=== PATIENT | male | born 1950 | race Caucasian/White ===

== ENCOUNTER 2017-08-25 19:45 | Emergency (ER) | payer MEDICARE ==
[~2017-08-25] VITALS: Ht 182.9 cm; Wt 99.8 kg
[~2017-08-25 19:45] MED LIST: AMLO5 PO; ASPI81CH PO; BP MED; EZET10 PO; HYDR1TAB94 PO; LEVFLO500 PO; LISHYD2025 PO; LISI20 PO; Micro-K10 MEQ PO; OMEP10ER PO; OMEP20ER; OMEP20ER PO; VITAMIN D-32000 UNI1 PO; [UNRECOGNIZED DRUG - OTHER] PO
[2017-08-25 20:10] LABS: BASOPHILS ABSOLUTE AUTO 0.02 K/mm3 (0.00-0.23); BASOPHILS PERCENT AUTO 0 % (0-2); EOSINOPHILS ABSOLUTE AUTO 0.09 K/mm3 (0.00-0.68); EOSINOPHILS PERCENT AUTO 1 % (0-6); Hematocrit 39.8 % (37.0-53.0); Hemoglobin 13.5 g/dL (13.5-17.5); IMMATURE GRAN ABSOLUTE AUTO 0.04 K/mm3 (0.00-0.10); IMMATURE GRAN PERCENT AUTO 0 % (0-1); LYMPHOCYTES PERCENT AUTO 44 % (21-46); MONOCYTES ABSOLUTE AUTO 0.87 K/mm3 (0.16-1.47); MONOCYTES PERCENT AUTO 7 % (4-13); Mean Corpuscular HGB 32.5 pg (26.0-34.0); Mean Corpuscular HGB Conc 33.9 g/dL (31.5-36.5); Mean Corpuscular Volume 96 fL (80-100); Mean Platelet Volume 9.1 fL (9.1-12.4); NEUTROPHILS ABSOLUTE AUTO 5.66 K/mm3 (1.96-9.15); NEUTROPHILS PERCENT AUTO 48 % (41-73); Platelet Count 220 K/mm3 (150-400); RDW Coefficient Variation 13.9 % (11.7-14.2); RDW Standard Deviation 49.1 fL (35.1-46.3); Red Blood Cell Count 4.15 M/mm3 (4.30-5.90); White Blood Cell Count 11.88 K/mm3 (4.00-11.30)
[2017-08-25 20:28] LABS: Alanine Aminotransfer (ALT/SGP 38 U/L (12-78); Albumin, Blood 3.2 g/dL (3.4-5.0); Albumin/Globulin Ratio 0.9 (0.8-1.8); Alk Phos 77 U/L (50-136); Anion Gap 11 mmol/L (6-16); Aspartate Aminotrans (AST/SGOT 28 U/L (12-37); Bilirubin, Total 0.3 mg/dL (0.1-1.0); Blood Urea Nitrogen 24 mg/dL (8-24); Bun/Creatinine Ratio 21.6 (12.0-20.0); CO2, Blood 21 mmol/L (21-32); Calcium, Blood 8.5 mg/dL (8.5-10.1); Chloride, Blood 106 mmol/L (98-108); Creatinine, Blood 1.11 mg/dL (0.60-1.20); Globulin, Blood 3.4 g/dL (2.2-4.0); Glomerular Filtration Rate >60 (60-); Glucose, Blood 149 mg/dL (70-99); Sodium, Blood 138 mmol/L (136-145); Total Protein, Blood 6.6 g/dL (6.4-8.2)
== END 2017-08-25 21:58 | disposition home or self-care (01) ==
LOC: ER 19:45
PROVIDERS: Emergency Medicine
DX: R55 Syncope and collapse (principal); I95.2 Hypotension due to drugs; T39.315A Adverse effect of propionic acid derivatives, initial encounter; Z88.6 Allergy status to analgesic agent; Z88.8 Allergy status to other drugs, medicaments and biological substances; Z79.899 Other long term (current) drug therapy; Z79.82 Long term (current) use of aspirin; I10 Essential (primary) hypertension; E78.00 Pure hypercholesterolemia, unspecified; K21.9 Gastro-esophageal reflux disease without esophagitis
CPT/HCPCS: 36415; 71046; 80053; 83880; 85025; 93005; 93010; 96361; 96374; 99284; J1200; J7030

== ENCOUNTER 2017-09-21 17:35 | Emergency (ER) | payer MEDICARE ==
[~2017-09-21] VITALS: Ht 182.9 cm; Wt 113.4 kg
== END 2017-09-21 18:29 | disposition home or self-care (01) ==
LOC: ER 17:35
DX: S90.31XA Contusion of right foot, initial encounter (principal); I10 Essential (primary) hypertension; E78.00 Pure hypercholesterolemia, unspecified; K21.9 Gastro-esophageal reflux disease without esophagitis; Z88.6 Allergy status to analgesic agent; Z79.899 Other long term (current) drug therapy; Z79.82 Long term (current) use of aspirin; Z87.891 Personal history of nicotine dependence; W22.8XXA Striking against or struck by other objects, initial encounter
CPT/HCPCS: 73630; 99283

== ENCOUNTER → 2017-12-31 | Outpatient (CLI) | payer MEDICARE | END | disposition home or self-care (01) | LOC: LAB SHORT 10:03 → PLD 10:03 | DX: D48.5 Neoplasm of uncertain behavior of skin (principal) | CPT/HCPCS: 88305 ==

== ENCOUNTER → 2019-01-06 | Outpatient (CLI) | payer OTHER | END | disposition home or self-care (01) | LOC: LAB SHORT 08:11 → PLD 08:11 | DX: C44.329 Squamous cell carcinoma of skin of other parts of face (principal) | CPT/HCPCS: 88305 ==

== ENCOUNTER → 2019-01-19 | Outpatient (CLI) | payer OTHER | END | disposition home or self-care (01) | LOC: LAB SHORT 16:34 → PLD 16:34 | DX: L57.8 Other skin changes due to chronic exposure to nonionizing radiation (principal) | CPT/HCPCS: 88305 ==

== ENCOUNTER 2020-05-29 10:49 | Observation (INO) | payer OTHER ==
[~2020-05-29] VITALS: Ht 182.9 cm; Wt 104.3 kg
[~2020-05-29 10:49] MED LIST changes: -AMLO5 PO; -LISHYD2025 PO
[2020-05-29] MEDS ORDERED: OMEP20ER PO (11:07)
[2020-05-29] MEDS ORDERED: Vitamin D2000 UNIT PO (11:08)
[2020-05-29] MEDS ORDERED: AMLO5 PO (11:08)
[2020-05-29] MEDS ORDERED: LISINOPRIL-HCT1 EACH PO (11:08)
[2020-05-29] MEDS ORDERED: POTA10T PO (11:08)
[2020-05-29] MEDS ORDERED: Norco 5-325 Ta1 EACH PO (11:09)
[2020-05-29] MEDS ORDERED: TIZA4 PO (11:10)
[2020-05-29 11:23] LABS: BASOPHILS ABSOLUTE AUTO 0.04 K/mm3 (0.00-0.23); BASOPHILS PERCENT AUTO 1 % (0-2); EOSINOPHILS ABSOLUTE AUTO 0.13 K/mm3 (0.00-0.68); EOSINOPHILS PERCENT AUTO 2 % (0-6); Hematocrit 37.9 % (37.0-53.0); Hemoglobin 12.9 g/dL (13.5-17.5); IMMATURE GRAN ABSOLUTE AUTO 0.02 K/mm3 (0.00-0.10); IMMATURE GRAN PERCENT AUTO 0 % (0-1); LYMPHOCYTES ABSOLUTE AUTO 2.11 K/mm3 (0.84-5.20); LYMPHOCYTES PERCENT AUTO 32 % (21-46); MONOCYTES ABSOLUTE AUTO 0.47 K/mm3 (0.16-1.47); MONOCYTES PERCENT AUTO 7 % (4-13); Mean Corpuscular HGB 32.6 pg (26.0-34.0); Mean Corpuscular Volume 96 fL (80-100); NEUTROPHILS ABSOLUTE AUTO 3.84 K/mm3 (1.96-9.15); NEUTROPHILS PERCENT AUTO 58 % (41-73); Platelet Count 188 K/mm3 (150-400); RDW Coefficient Variation 13.1 % (11.7-14.2); RDW Standard Deviation 45.9 fL (35.1-46.3); Red Blood Cell Count 3.96 M/mm3 (4.30-5.90); White Blood Cell Count 6.61 K/mm3 (4.00-11.30)
[2020-05-29 11:42] LABS: Alanine Aminotransfer (ALT/SGP 27 U/L (12-78); Albumin, Blood 3.3 g/dL (3.4-5.0); Alk Phos 74 U/L (50-136); Anion Gap 8 mmol/L (6-16); Aspartate Aminotrans (AST/SGOT 22 U/L (12-37); Bilirubin, Total 0.3 mg/dL (0.1-1.0); Blood Urea Nitrogen 12 mg/dL (8-24); Bun/Creatinine Ratio 15.3 (12.0-20.0); CO2, Blood 24 mmol/L (21-32); Calcium, Blood 8.8 mg/dL (8.5-10.1); Chloride, Blood 110 mmol/L (98-108); Creatinine, Blood 0.78 mg/dL (0.60-1.20); Globulin, Blood 3.4 g/dL (2.2-4.0); Glomerular Filtration Rate >60 (60-); Glucose, Blood 112 mg/dL (70-99); Potassium, Blood 3.6 mmol/L (3.5-5.5); Sodium, Blood 142 mmol/L (136-145); Total Protein, Blood 6.7 g/dL (6.4-8.2); Troponin I <0.015 ng/mL (0.000-0.040)
[2020-05-29] MEDS ORDERED: PRESERVISION A1 EACH PO (13:17)
[2020-05-29] MEDS ORDERED: ACET500 PO (13:18)
[2020-05-29 13:35] LABS: CHOL/HDL RATIO 5.4; Cholesterol 182 mg/dL (50-200); HDL Cholesterol 34 mg/dL (>39); LDL/HDL RATIO 2.5; Low Density Lipoprotein Chol 84 mg/dL (0-110); Triglycerides 321 mg/dL (30-160); Very Low Density Lipoprot Chol 64 mg/dL (6-32)
--- NOTE | 2020-05-29 18:10 | NUR ---
PT PLEASANT COOP A/O X3 TALKATIVE. STATES WAS TO OVERSEE A CONCRETE PAD PLACEMENT FOR [employer] TOMORROW. STAYS QUITE ACTIVE. DENIES PAIN. PRESENTS SOME WEAKER ON RT SIDE. ARM AND LEG. ABLE TO AMBULATE SBA. DID WELL. FINE MOTOR SKILLS POOR IN HAND JOSSELYN. H/R REG, NO MURMER NOTED. NSR PER TELE. LUNGS CLEAR, RESP EASY, UNLABORED. ON R.A. BT X4 LAST BM YEST. VOIDS URINAL. SBA TO BATHROOM. ASKED PT TO USE CALL LITE WE ARE UNSURE OF IF MAY MAKE SUDDEN CHANGE. HE AGREEABLE. BED IN LOW POSITION, CALL LITE IN REACH, CALLS APPROP. USING CELL PHONE TO TALK WITH FAMILY AT THIS TIME.
--- NOTE | 2020-05-30 04:21 | NUR ---
PCU FOOD SERVICES COORDINATOR (SEPTEMBER) CALLED TO ALERT STAFF THAT PT'S HR IS NOW SUSTAINING 50'S AND DROPPING TO LOW 40'S. HR PREVIOUSLY AVERAGED 60'S-70S. HE WAS ASYMPTOMATIC OF ANY CARDIAC DISTRESS AND WAS SLEEPING BUT SUSTAINED 50'S UPON AWAKING. ALERTED AND ATENOLOL DC'D AT THIS TIME.
--- NOTE | 2020-05-30 04:39 | NUR ---
SUMMARY: A/OX4, CALLS APPROPRIATELY AND SPECIFIES NEEDS. NEURO OBS STABLE. HIS R.SIDE IS ONLY SLIGHTLY WEAK BUT PT REPORTS IT'S "MUCH BETTER NOW" AND IS HARDLY NOTICEABLE TO STAFF. HE ADMITS HIS FINE MOTOR SKILLS TO HIS R.HAND ARE IMPAIRED MAKING THING LIKE "TEXTING DIFFICULT" BUT NO OTHER DEFICITS OBSERVED. TEDS INTACT BUT GIVEN BREAK FROM THEM AT HS. HE USES URINAL AT BEDSIDE W/O DIFFICULTY. HE REMAINS ON TELEMETRY W/HR AVERAGING 60'S-70'S BPM BUT PT DID BECOME BRADYCARDIC DOWN TO HIGH 40'S-50'S. HE WAS ASYMPTOMATIC BUT DC'D ATENOLOL. PT SLEPT INTERMITTENTLY T/O NOCTE AND DENIED PAIN/ COMPLAINTS. NO ACUTE CHANGES, VSS/AFEBRILE. WTCM AND REPORT TO DAY RN.
[2020-05-30 05:34] LABS: BASOPHILS ABSOLUTE AUTO 0.04 K/mm3 (0.00-0.23); BASOPHILS PERCENT AUTO 1 % (0-2); EOSINOPHILS ABSOLUTE AUTO 0.16 K/mm3 (0.00-0.68); EOSINOPHILS PERCENT AUTO 2 % (0-6); Hematocrit 36.2 % (37.0-53.0); Hemoglobin 12.3 g/dL (13.5-17.5); IMMATURE GRAN ABSOLUTE AUTO 0.02 K/mm3 (0.00-0.10); IMMATURE GRAN PERCENT AUTO 0 % (0-1); LYMPHOCYTES ABSOLUTE AUTO 3.26 K/mm3 (0.84-5.20); LYMPHOCYTES PERCENT AUTO 44 % (21-46); MONOCYTES ABSOLUTE AUTO 0.49 K/mm3 (0.16-1.47); MONOCYTES PERCENT AUTO 7 % (4-13); Mean Corpuscular HGB 32.5 pg (26.0-34.0); Mean Corpuscular Volume 96 fL (80-100); Mean Platelet Volume 9.5 fL (9.1-12.4); NEUTROPHILS ABSOLUTE AUTO 3.48 K/mm3 (1.96-9.15); NEUTROPHILS PERCENT AUTO 47 % (41-73); Platelet Count 180 K/mm3 (150-400); RDW Coefficient Variation 13.1 % (11.7-14.2); Red Blood Cell Count 3.79 M/mm3 (4.30-5.90); White Blood Cell Count 7.45 K/mm3 (4.00-11.30)
[2020-05-30 06:10] LABS: Anion Gap 8 mmol/L (6-16); Blood Urea Nitrogen 14 mg/dL (8-24); CO2, Blood 25 mmol/L (21-32); Calcium, Blood 8.9 mg/dL (8.5-10.1); Chloride, Blood 107 mmol/L (98-108); Glomerular Filtration Rate >60 (60-); Glucose, Blood 98 mg/dL (70-99); Magnesium, Blood 1.7 mg/dL (1.6-2.4); Potassium, Blood 3.5 mmol/L (3.5-5.5); Sodium, Blood 140 mmol/L (136-145)
[2020-05-30] MEDS ORDERED: ATOR80 PO (08:52)
[2020-05-30] MEDS ORDERED: ASPI325 PO (08:52)
--- NOTE | 2020-05-30 13:13 | NUR ---
Upon receiving an admit referral for spiritual care, I visit the patient. Patient is lying in bed and in street clothes. Patient's spouse Tracy is bedside. Patient explains about his medical issues and about his desire to connect with a Package Sorter for prayer. Patient talks about his laura, his career and his family. I listen empathically and provide prayer. Patient responds well and shows signs an elevated mood. I will continue to remain available to patient and family.
--- NOTE | 2020-05-30 14:05 | NUR ---
SHIFT SUMMARY CORBIN LEFT WITH HIS VIA WC. MEDS FAXED TO PHARMACY, ATTEMPTED TO MAKE PCP F/U FOR PT, BUT UNABLE TO REACH DOCTOR'S OFFICE, PT AWARE AND HE WILL CALL AT HOME TO GET APPT. PIV REMOVED, PAPERWORK GONE OVER WITH PT AND [facility]. THEY HAD A LOT OF CONCERNS ABOUT TAKING ASPIRIN PUBLIC SPEAKING PROFESSOR, DR DENNIS TO THE BEDSIDE, DR DENNIS CANCELED ASPIRIN PRESCRIP[TION.
== END 2020-05-30 13:28 | disposition home or self-care (01) ==
LOC: ER 10:49 → MEDS 10:50 → ENPENDDIS 05-30 11:02 → MEDS 05-30 13:28
PROVIDERS: Emergency Medicine; ADMIT Family Medicine
DX: R53.1 Weakness (principal); R09.89 Other specified symptoms and signs involving the circulatory and respiratory systems; I10 Essential (primary) hypertension; E78.5 Hyperlipidemia, unspecified; K21.9 Gastro-esophageal reflux disease without esophagitis; G89.29 Other chronic pain; M54.9 Dorsalgia, unspecified; M20.11 Hallux valgus (acquired), right foot; M21.611 Bunion of right foot; M20.41 Other hammer toe(s) (acquired), right foot; M75.101 Unspecified rotator cuff tear or rupture of right shoulder, not specified as traumatic; R73.03 Prediabetes; Z23 Encounter for immunization; Z88.6 Allergy status to analgesic agent; Z79.82 Long term (current) use of aspirin; Z79.899 Other long term (current) drug therapy; Z87.891 Personal history of nicotine dependence; Z66 Do not resuscitate
CPT/HCPCS: 36415; 70450; 70551; 80048; 80053; 80061; 83735; 84484; 85025; 92610; 93005; 93010; 96372; 97110; 97162; 99285-25; A9270; A9270-GY; J1650

== ENCOUNTER → 2020-08-23 | Outpatient (CLI) | payer MEDICARE ==
[~2020-08-23] MED LIST changes: +ACET500 PO; +AMLO5 PO; +ASPI325 PO; +ATOR80 PO; +FENO48 PO; +LISINOPRIL-HCT1 EACH PO; +LORCET 5-325 M1 EACH PO; +MULTIPLE VITAM1 EACH PO; +Norco 5-325 Ta1 EACH PO; +POTA10T PO; +PRESERVISION A1 EACH PO; +THERA-D2000 UNIT PO; +TIZA4 PO; +VIT1CAPS12 PO; +Vitamin D2000 UNIT PO; +ZESTORETIC 20-121 EA PO
[2020-08-24 05:34] LABS: Stool Occult Bld Immuno 1 Negative (NEGATIVE); Stool Occult Bld Immuno 2 Negative (NEGATIVE)
== END | disposition home or self-care (01) ==
LOC: LAB 09:50 → LAB SHORT 09:50 → LAB FUT 05-13 16:55
PROVIDERS: Internal Medicine Gastroenterology
DX: Z12.11 Encounter for screening for malignant neoplasm of colon (principal)
CPT/HCPCS: G0328

== ENCOUNTER 2020-09-14 07:49 | Day surgery (SDC) | payer MEDICARE ==
[~2020-09-14] VITALS: Ht 182.9 cm; Wt 102.9 kg
[~2020-09-14 07:49] MED LIST changes: -LORCET 5-325 M1 EACH PO; -THERA-D2000 UNIT PO; -VIT1CAPS12 PO
[2020-09-14] MEDS ORDERED: ACET500 PO (08:18)
[2020-09-14] MEDS ORDERED: THERA-D2000 UNIT PO (08:19)
[2020-09-14] MEDS ORDERED: LORCET 5-325 M1 EACH PO (08:20)
[2020-09-14] MEDS ORDERED: VIT1CAPS12 PO (08:20)
== END 2020-09-14 09:21 | disposition home or self-care (01) ==
LOC: ORSCSDS 07:49
PROVIDERS: Internal Medicine Gastroenterology
PROC: 0DB58ZX Excision of Esophagus, Via Natural or Artificial Opening Endoscopic, Diagnostic (ICD-10-PCS; principal; 2020-09-14 09:00)
DX: K22.70 Barrett's esophagus without dysplasia (principal); E66.9 Obesity, unspecified; I10 Essential (primary) hypertension; K44.9 Diaphragmatic hernia without obstruction or gangrene; Z68.31 Body mass index [BMI] 31.0-31.9, adult; Z79.899 Other long term (current) drug therapy
CPT/HCPCS: 88305; J0461; J2405; J2704; J7120

== ENCOUNTER → 2021-03-22 | Outpatient (CLI) | payer MEDICARE ==
[~2021-03-22] MED LIST changes: +LORCET 5-325 M1 EACH PO; +THERA-D2000 UNIT PO; +VIT1CAPS12 PO
== END | disposition home or self-care (01) ==
LOC: LAB SHORT 11:36
DX: D04.22 Carcinoma in situ of skin of left ear and external auricular canal (principal)
CPT/HCPCS: 88305

== ENCOUNTER 2021-04-14 06:12 | Day surgery (SDC) | payer MEDICARE ==
[~2021-04-14] VITALS: Ht 182.9 cm; Wt 104.3 kg
[~2021-04-14 06:12] MED LIST changes: +FENO48
== END 2021-04-14 09:39 | disposition home or self-care (01) ==
LOC: ORSCSDS 06:12
PROVIDERS: Podiatrist Foot & Ankle Surgery
PROC: 0L8W0ZZ Division of Left Foot Tendon, Open Approach (ICD-10-PCS; principal; 2021-04-14 07:30)
DX: M20.42 Other hammer toe(s) (acquired), left foot (principal); I10 Essential (primary) hypertension; E78.5 Hyperlipidemia, unspecified; Z87.891 Personal history of nicotine dependence; K21.9 Gastro-esophageal reflux disease without esophagitis; Z86.73 Personal history of transient ischemic attack (TIA), and cerebral infarction without residual deficits; Z79.899 Other long term (current) drug therapy
CPT/HCPCS: J0690; J1100; J2001; J2250; J2370; J2405; J2704; J3010; J7120

== ENCOUNTER 2022-02-26 15:51 | Emergency (ER) | payer OTHER ==
[~2022-02-26] VITALS: Ht 182.9 cm; Wt 104.3 kg
[~2022-02-26 15:51] MED LIST changes: +Aspir 8181 MG PO; +CLOP75 PO; +Crestor20 MG PO; +VASCEPA1 G1 PO
== END 2022-02-26 19:36 | disposition home or self-care (01) ==
LOC: ER 15:51
DX: S61.214A Laceration without foreign body of right ring finger without damage to nail, initial encounter (principal); S60.412A Abrasion of right middle finger, initial encounter; I10 Essential (primary) hypertension; E78.5 Hyperlipidemia, unspecified; Z86.73 Personal history of transient ischemic attack (TIA), and cerebral infarction without residual deficits; K21.9 Gastro-esophageal reflux disease without esophagitis; Z23 Encounter for immunization; Z79.899 Other long term (current) drug therapy; Z79.82 Long term (current) use of aspirin; Z88.6 Allergy status to analgesic agent; W27.0XXA Contact with workbench tool, initial encounter
CPT/HCPCS: 73130; 90714; J0690

== ENCOUNTER → 2022-04-24 | Outpatient (CLI) | payer OTHER | LOC: LAB SHORT 12:23 → PLD 12:23 | DX: D04.4 Carcinoma in situ of skin of scalp and neck (principal) | CPT/HCPCS: 88305 ==

== ENCOUNTER 2023-08-13 16:51 | Emergency (ER) | payer OTHER ==
[~2023-08-13] VITALS: Ht 182.9 cm; Wt 104.3 kg
[2023-08-13] MEDS ORDERED: OxyCODONE HCL 5 MG TAB PO ONE (19:30)
[2023-08-13] MEDS ORDERED: Lidocaine 4% 1 Patch TOP ONE (19:30)
[2023-08-13] MEDS ORDERED: LIDOCAINE1 EACH TOP (19:34)
[2023-08-13] MEDS ORDERED: PERCOCET 10-321 EA10 PO (19:34)
[2023-08-13] MEDS ORDERED: Robaxin750 MG PO (19:34)
[2023-08-13 19:40] VITALS: BP 147/77
== END 2023-08-13 19:47 | disposition home or self-care (01) ==
LOC: ER 16:51
DX: M54.16 Radiculopathy, lumbar region (principal); I10 Essential (primary) hypertension; E78.5 Hyperlipidemia, unspecified; K21.9 Gastro-esophageal reflux disease without esophagitis; Z88.6 Allergy status to analgesic agent; Z79.82 Long term (current) use of aspirin; Z79.899 Other long term (current) drug therapy; Z79.02 Long term (current) use of antithrombotics/antiplatelets; Z86.73 Personal history of transient ischemic attack (TIA), and cerebral infarction without residual deficits; Z87.891 Personal history of nicotine dependence
CPT/HCPCS: 99283; A9270

== ENCOUNTER 2023-08-17 00:52 | Emergency (ER) | payer OTHER ==
[~2023-08-17] VITALS: Ht 182.9 cm; Wt 104.3 kg
[~2023-08-17 00:52] MED LIST changes: +LIDOCAINE1 EACH TOP; +PERCOCET 10-321 EA10 PO; +Robaxin750 MG PO
[2023-08-17] MEDS ORDERED: FentaNYL Citrate 50 MCG/ML 2 ML Injection IV ONE ×2 (02:05→04:50)
[2023-08-17 02:27] LABS: BASOPHILS ABSOLUTE AUTO 0.04 K/mm3 (0.00-0.23); BASOPHILS PERCENT AUTO 0 % (0-2); EOSINOPHILS ABSOLUTE AUTO 0.08 K/mm3 (0.00-0.68); EOSINOPHILS PERCENT AUTO 1 % (0-6); Hematocrit 37.1 % (37.0-53.0); Hemoglobin 13.1 g/dL (13.5-17.5); IMMATURE GRAN ABSOLUTE AUTO 0.03 K/mm3 (0.00-0.10); IMMATURE GRAN PERCENT AUTO 0 % (0-1); LYMPHOCYTES ABSOLUTE AUTO 1.72 K/mm3 (0.84-5.20); LYMPHOCYTES PERCENT AUTO 17 % (21-46); MONOCYTES ABSOLUTE AUTO 0.93 K/mm3 (0.16-1.47); MONOCYTES PERCENT AUTO 9 % (4-13); Mean Corpuscular HGB 34.4 pg (26.0-34.0); Mean Corpuscular HGB Conc 35.3 g/dL (31.5-36.5); Mean Corpuscular Volume 97 fL (80-100); Mean Platelet Volume 8.7 fL (9.1-12.4); NEUTROPHILS ABSOLUTE AUTO 7.55 K/mm3 (1.96-9.15); NEUTROPHILS PERCENT AUTO 73 % (41-73); Platelet Count 239 K/mm3 (150-400); RDW Coefficient Variation 13.2 % (11.7-14.2); RDW Standard Deviation 47.5 fL (35.1-46.3); Red Blood Cell Count 3.81 M/mm3 (4.30-5.90); White Blood Cell Count 10.35 K/mm3 (4.00-11.30)
[2023-08-17 02:46] LABS: Albumin, Blood 3.2 g/dL (3.4-5.0); Albumin/Globulin Ratio 0.8 (0.8-1.8); Bilirubin, Total 0.6 mg/dL (0.1-1.0); Bun/Creatinine Ratio 19.4 (12.0-20.0); Calcium, Blood 9.2 mg/dL (8.5-10.1); Creatinine, Blood 0.62 mg/dL (0.60-1.20); Globulin, Blood 3.8 g/dL (2.2-4.0)
[2023-08-17 03:19] LABS: Influenza A, PCR NEGATIVE (NEGATIVE); Influenza B, PCR NEGATIVE (NEGATIVE); Resp Syncytial Virus, PCR NEGATIVE (NEGATIVE); SARS-Cov-2 (COVID-19) PCR, MMC NEGATIVE (NEGATIVE)
[2023-08-17] MEDS ORDERED: Lidocaine 4% 1 Patch TOP ONE (04:50)
[2023-08-17 05:31] LABS: International Normalized Ratio 1.04; Prothrombin Time Results 10.9 Sec (9.7-11.5)
[2023-08-17] MEDS ORDERED: HYDROmorphone HCl/Pf 1MG SYR IV ONE (05:45)
[2023-08-17 06:04] LABS: Source, Urine Clean Catch
[2023-08-17 06:08] LABS: Appearance, Urine Clear (Clear); Bilirubin, Urine Neg (Neg); Blood, Urine Neg (Neg); Color, Urine Yellow (P-Yellow); Glucose Qualitative, Urine Neg (Neg); Ketones, Urine 2+ (Neg); Leukocyte Esterase, Urine Neg (Neg); Nitrite, Urine Neg (Neg); Protein, Urine 1+ (Neg); Specific Gravity, Urine 1.025 (1.003-1.022); Urobilinogen, Urine NORM (Normal)
[2023-08-17 06:20] VITALS: BP 158/85
== END 2023-08-17 06:22 | disposition short-term general hospital (02) ==
LOC: ER 00:52
PROVIDERS: Student in an Organized Health Care Education/Training Program
DX: S06.5X0A Traumatic subdural hemorrhage without loss of consciousness, initial encounter (principal); S42.291A Other displaced fracture of upper end of right humerus, initial encounter for closed fracture; M25.551 Pain in right hip; R53.1 Weakness; I10 Essential (primary) hypertension; E78.5 Hyperlipidemia, unspecified; K21.9 Gastro-esophageal reflux disease without esophagitis; Z87.891 Personal history of nicotine dependence; Z86.73 Personal history of transient ischemic attack (TIA), and cerebral infarction without residual deficits; Z99.89 Dependence on other enabling machines and devices; Z79.82 Long term (current) use of aspirin; Z79.02 Long term (current) use of antithrombotics/antiplatelets; Z79.899 Other long term (current) drug therapy; Z88.6 Allergy status to analgesic agent; W01.10XA Fall on same level from slipping, tripping and stumbling with subsequent striking against unspecified object, initial encounter; Y93.01 Activity, walking, marching and hiking
CPT/HCPCS: 0241U; 70450; 73030; 73502; 80053; 84484; 85025; 85610; 96374; 96375; 96376; 99285-25; A9270; J1170; J3010; L0160

== ENCOUNTER 2025-03-16 06:08 | Day surgery (SDC) | payer OTHER ==
[~2025-03-16] VITALS: Ht 177.8 cm; Wt 95.0 kg
[~2025-03-16 06:08] MED LIST changes: +Balanced Salt Epinephrine Irrigation Solution 500 mL IR SCH; +Moxifloxacin HCL 0.5 MG/0.1 ML 0.4MLSYR RIGHTEYE SCH; +Ondansetron 4 MG SoluTab MM PRN; +PHENYLEPHRINE\\TROPICAMIDE\\TETRACAINE OPHTHALMIC DILATING SOLN RIGHTEYE PRN; +Povidone-Iodine 450 DROP/30 ML Solution ONE; +Povidone-Iodine 450 DROP/30 ML Solution RIGHTEYE SCH; +Tetracaine HCl/Pf 0.5% Opth Soln 4 ml ONE
[2025-03-16] MEDS ORDERED: Voltaren100 GM (06:39)
--- NOTE | 2025-03-16 06:47 | NUR ---
03/16/25 0647 Macey Ferrer PT STATES ANXIETY WAS 0/10 PRIOR TO VALIUM. VALIUM 10MG ADMINISTERED AT 0635. PULSE OXIMETRY IN PLACE SHOWING SPO2 OF 98% ON RA. TETRACAINE IN AT 0637 PLEDGETT IN AT 0638 PT TOLERATED WELL. SIDE RAILS UP. CALL LIGHT IN REACH.
--- NOTE | 2025-03-16 07:40 | NUR ---
03/16/25 0740 Reyna Corral 0731 BP:128/75 HR:60 O2:96% RESP: 16
[2025-03-16 08:18] VITALS: BP 135/76
[2025-03-17] MEDS ORDERED: LASIX20 M2 (08:48)
[2025-03-17] MEDS ORDERED: LISI20 PO (08:48)
== END 2025-03-16 08:11 | disposition home or self-care (01) ==
LOC: ORSCSDS 06:08
PROVIDERS: Student in an Organized Health Care Education/Training Program
PROC: 08RJ3JZ Replacement of Right Lens with Synthetic Substitute, Percutaneous Approach (ICD-10-PCS; principal; 2025-03-16 07:30)
DX: H25.813 Combined forms of age-related cataract, bilateral (principal); H52.201 Unspecified astigmatism, right eye; I10 Essential (primary) hypertension; E78.00 Pure hypercholesterolemia, unspecified; Z86.73 Personal history of transient ischemic attack (TIA), and cerebral infarction without residual deficits; Z79.899 Other long term (current) drug therapy; Z87.891 Personal history of nicotine dependence
CPT/HCPCS: A9270; J2003; V2632

== ENCOUNTER 2025-03-23 12:37 | Day surgery (SDC) | payer OTHER ==
[~2025-03-23] VITALS: Ht 177.8 cm; Wt 94.6 kg
[~2025-03-23 12:37] MED LIST changes: +LASIX20 M2; +Moxifloxacin HCL 0.5 MG/0.1 ML 0.4MLSYR LEFTEYE SCH; -Moxifloxacin HCL 0.5 MG/0.1 ML 0.4MLSYR RIGHTEYE SCH; +PHENYLEPHRINE\\TROPICAMIDE\\TETRACAINE OPHTHALMIC DILATING SOLN LEFTEYE PRN; -PHENYLEPHRINE\\TROPICAMIDE\\TETRACAINE OPHTHALMIC DILATING SOLN RIGHTEYE PRN; +Povidone-Iodine 450 DROP/30 ML Solution LEFTEYE SCH; -Povidone-Iodine 450 DROP/30 ML Solution RIGHTEYE SCH; +Voltaren100 GM
--- NOTE | 2025-03-23 12:55 | NUR ---
03/23/25 Kranthi5 Donna Hernandez 1253: 10 MG PO VALIUM GIVEN PER ORDERS. PUSLE OX ON FINGER, CALL LIGHT IN REACH. INITIAL ANXIETY IS 0 1255: TETRACAINE PER ORDERS
[2025-03-23] MEDS ORDERED: OXYC10TA19 (12:59)
[2025-03-23] MEDS ORDERED: ZOLP5 (13:00)
[2025-03-23] MEDS ORDERED: Tetracaine HCl 0.5% Opth Soln 15 ml LEFTEYE ONE (13:16)
--- NOTE | 2025-03-23 13:20 | NUR ---
03/23/25 1320 Berkley Hodge N 126/67 95% 10L BLOW BY O2 69 18
[2025-03-23 13:39] VITALS: BP 120/66
== END 2025-03-23 16:38 | disposition home or self-care (01) ==
LOC: ORSCSDS 12:37
PROVIDERS: Student in an Organized Health Care Education/Training Program
PROC: 08RK3JZ Replacement of Left Lens with Synthetic Substitute, Percutaneous Approach (ICD-10-PCS; principal; 2025-03-23 14:00)
DX: H25.812 Combined forms of age-related cataract, left eye (principal); H52.202 Unspecified astigmatism, left eye; H35.312 Nonexudative age-related macular degeneration, left eye; Z96.1 Presence of intraocular lens; I10 Essential (primary) hypertension; E78.00 Pure hypercholesterolemia, unspecified; Z86.73 Personal history of transient ischemic attack (TIA), and cerebral infarction without residual deficits; Z79.82 Long term (current) use of aspirin; Z79.899 Other long term (current) drug therapy; Z87.891 Personal history of nicotine dependence
CPT/HCPCS: A9270; V2632